=== PATIENT | female | born 1945 | race Native Hawaiian/Other Pacific Islander ===

== ENCOUNTER 2018-02-24 11:23 | Outpatient (CLI) | payer BC, OTHER | END 2018-02-24 21:58 | disposition home or self-care (01) | LOC: US 11:23 | DX: E03.8 Other specified hypothyroidism (principal) ==

== ENCOUNTER 2019-09-17 09:05 | Outpatient (CLI) | payer BC, OTHER | END 2019-09-17 22:23 | disposition home or self-care (01) | LOC: US 09:05 | DX: Z00.00 Encounter for general adult medical examination without abnormal findings (principal); E03.8 Other specified hypothyroidism; E78.49 Other hyperlipidemia; I10 Essential (primary) hypertension; R10.9 Unspecified abdominal pain; R53.82 Chronic fatigue, unspecified; Z79.899 Other long term (current) drug therapy ==

== ENCOUNTER 2020-08-03 12:59 | Outpatient (CLI) | payer OTHER ==
[2020-08-03 19:17] LABS: SODIUM 138 mmol/L (136-145)
[2020-08-03 19:44] LABS: PLATELET COUNT 298 K/uL (152-353)
== END 2020-08-03 23:39 | disposition home or self-care (01) ==
LOC: LABW 12:59
PROVIDERS: Nurse Practitioner Family
DX: N18.3 Chronic kidney disease, stage 3 (moderate) (principal); E03.8 Other specified hypothyroidism
CPT/HCPCS: 36415; 80053; 81000; 82306; 82330; 82570; 83735; 83970; 84100; 84155; 84439; 84443; 85027

== ENCOUNTER 2021-03-22 09:37 | Outpatient (CLI) | payer OTHER | END 2021-03-22 20:26 | disposition home or self-care (01) | LOC: US 09:37 | PROVIDERS: ATTEND Nurse Practitioner Family | DX: D64.89 Other specified anemias (principal); E78.49 Other hyperlipidemia; E03.8 Other specified hypothyroidism; E11.9 Type 2 diabetes mellitus without complications; D17.9 Benign lipomatous neoplasm, unspecified ==

== ENCOUNTER 2022-02-11 14:01 | Outpatient (CLI) | payer OTHER | END 2022-02-11 19:00 | disposition home or self-care (01) | LOC: RESP 14:01 | PROVIDERS: ATTEND Nurse Practitioner Family | DX: Z00.8 Encounter for other general examination (principal); Z71.89 Other specified counseling; Z71.82 Exercise counseling; Z13.31 Encounter for screening for depression; Z12.39 Encounter for other screening for malignant neoplasm of breast; Z13.820 Encounter for screening for osteoporosis; D64.89 Other specified anemias; N18.30 Chronic kidney disease, stage 3 unspecified; E11.9 Type 2 diabetes mellitus without complications | CPT/HCPCS: 93005 ==

== ENCOUNTER → 2023-01-21 | Outpatient (CLI) | payer OTHER | LOC: RAD 09:24 | PROVIDERS: ATTEND Nurse Practitioner Family | DX: M25.461 Effusion, right knee (principal) ==

== ENCOUNTER 2023-02-24 14:24 | Outpatient (CLI) | payer OTHER | END 2023-02-24 19:05 | disposition home or self-care (01) | LOC: MAMMO 14:24 | PROVIDERS: ATTEND Nurse Practitioner Family | DX: Z12.31 Encounter for screening mammogram for malignant neoplasm of breast (principal) ==